=== PATIENT | female | born 1990 | race American Indian/Alaskan Native ===

== ENCOUNTER 2018-11-21 15:40 | Emergency (ER) | payer MEDICAID ==
[2018-11-21 15:59] VITALS: TEMP 98.3
--- NOTE | 2018-11-21 17:33 | C.PDOC ---
History Of Present Illness 28 year old female presents to the ED for evaluation of flu-like symptoms which began around 5 days ago. Patient complains of throat pain, cough, chills, rhinorrhea, and generalized body aches. She has been taking Day/NyQuil without significant relief. Patient presents to the ED today for evaluation of whether she has pneumonia or flu. She denies nausea, vomiting, diarrhea, urinary symptoms. Chief Complaint (Nursing): Flu-like Symptoms History Per: Patient History/Exam Limitations: no limitations Onset/Duration Of Symptoms: Days (5) Current Symptoms Are (Timing): Still Present Location Of Pain: Throat, Diffuse Myalgias Associated Symptoms: Chills, Sore Throat, Cough, Myalgias. denies: Nausea, Vomiting, Diarrhea Additional History Per: Patient Past Medical History Reviewed: Historical Data, Nursing Documentation, Vital Signs Vital Signs: Last Vital Signs Temp 98.3 F 11/21/18 15:56 Pulse 112 H 11/21/18 15:56 Resp 20 11/21/18 15:56 BP 122/87 11/21/18 15:56 Pulse Ox 98 11/21/18 15:56 - Medical History PMH: Asthma Surgical History: No Surg Hx Family History: States: Unknown Family Hx - Social History Hx Alcohol Use: Yes Hx Substance Use: No - Immunization History Hx Tetanus Toxoid Vaccination: No Hx Influenza Vaccination: No Hx Pneumococcal Vaccination: No Review Of Systems Constitutional: Positive for: Chills. Negative for: Weakness Eyes: Negative for: Redness, Other (scleral icterus ) ENT: Positive for: Nose Discharge, Throat Pain. Negative for: Mouth Swelling Cardiovascular: Negative for: Chest Pain Respiratory: Positive for: Cough. Negative for: Shortness of Breath Gastrointestinal: Negative for: Nausea, Vomiting, Diarrhea Genitourinary: Negative for: Dysuria, Hematuria Musculoskeletal: Positive for: Other (generalized body aches ). Negative for: Back Pain Skin: Negative for: Rash Neurological: Negative for: Weakness, Numbness, Dizziness Physical Exam - Physical Exam Appears: Well, Non-toxic, No Acute Distress Skin: Normal Color, Warm, No Rash Head: Atraumatic, Normacephalic Eye(s): bilateral: Normal Inspection (no scleral icterus ), PERRL, EOMI Ear(s): Bilateral: Normal (no drainage ) Nose: Other (enlarged turbinates bilaterally ) Oral Mucosa: Moist Throat: Normal (no swelling or injection ), No Exudate, Other (airway patent ) Chest: Symmetrical Respiratory: No Accessory Muscle Use, Other (normal inspiratory effort ) Extremity: Normal ROM Extremity: Bilateral: Atraumatic Neurological/Psych: Oriented x3, Normal Cranial Nerves (grossly intact ) ED Course And Treatment O2 Sat by Pulse Oximetry: 98 (on RA) Pulse Ox Interpretation: Normal Medical Decision Making Medical Decision Making: Progress: Flu swab ordered and reviewed. Patient is negative for flu A/B. Disposition Counseled Patient/Family Regarding: Studies Performed, Diagnosis, Need For Followup, Rx Given - Disposition Disposition: HOME/ ROUTINE Disposition Time: 17:31 Condition: STABLE Prescriptions: Albuterol HFA [Ventolin HFA 90 mcg/actuation (8 g)] 2 puff IH [id number] #1 inhaler Cetirizine HCl/Pseudoephedrine [Zyrtec-D Tablet] 1 each PO DAILY #14 tab.er.[id number] Instructions: Viral Upper Respiratory Infection, Adult (DC) Forms: General Discharge Instructions, [facility] (Slovenian), Work Excuse - Clinical Impression Clinical Impression: Influenza-like illness - PA / [employer] / Resident Statement MD/DO has reviewed & agrees with the documentation as recorded. - Scribe Statement The provider has reviewed the documentation as recorded by the Scribe (Radha Lemos) All medical record entries made by the Scribe were at my direction and personally dictated by me. I have reviewed the chart and agree that the record accurately reflects my personal performance of the history, physical exam, medical decision making, and the department course for this patient. I have also personally directed, reviewed, and agree with the discharge instructions and disposition.
[2018-11-21 17:41] VITALS: BP 129/76; PULSE 68; RESP 18
[2018-11-21 18:11] VITALS: O2SAT 98
== END 2018-11-21 17:41 | disposition home or self-care (01) ==
LOC: C.ER 15:40
DX: J11.1 Influenza due to unidentified influenza virus with other respiratory manifestations (principal)

== ENCOUNTER 2019-03-17 19:54 | Emergency (ER) | payer MEDICAID ==
[2019-03-17] MEDS ORDERED: Sodium Chloride 0.9% 1,000 ML IV ONE (20:25)
--- NOTE | 2019-03-17 20:30 | C.PDOC ---
History Of Present Illness 28 y/o female comes in to ED for reported abdominal pain, lower back pain, and hematuria since earlier today. Currently on depo. States that when she went to use the bathroom, she noticed blood clots but unclear where it was coming from. No fever or other complaints. Time Seen by Provider: 03/17/19 20:20 Chief Complaint (Nursing): Female Genitourinary History Per: Patient History/Exam Limitations: no limitations Onset/Duration Of Symptoms: Hrs Current Symptoms Are (Timing): Still Present Past Medical History Reviewed: Historical Data, Nursing Documentation, Vital Signs Vital Signs: Last Vital Signs Temp 98.8 F 03/17/19 20:10 Pulse 65 03/17/19 20:10 Resp 20 03/17/19 20:10 BP 121/85 03/17/19 20:10 Pulse Ox 98 03/17/19 20:10 Primary Care Provider: Alexia Toure - Medical History PMH: Asthma Family History: States: No Known Family Hx - Social History Hx Alcohol Use: Yes Hx Substance Use: No - Immunization History Hx Tetanus Toxoid Vaccination: No Hx Influenza Vaccination: No Hx Pneumococcal Vaccination: No Review Of Systems Except As Marked, All Systems Reviewed And Found Negative. Constitutional: Negative for: Fever, Chills Gastrointestinal: Positive for: Abdominal Pain Genitourinary: Positive for: Hematuria. Negative for: Dysuria, Vaginal Discharge, Vaginal Bleeding Musculoskeletal: Positive for: Back Pain (lower back) Physical Exam - Physical Exam Appears: Non-toxic, No Acute Distress Skin: Warm, Dry Head: Normacephalic Eye(s): bilateral: Normal Inspection Oral Mucosa: Moist Neck: Supple Cardiovascular: Rhythm Regular, No Murmur Respiratory: Normal Breath Sounds, No Rales, No Rhonchi, No Wheezing Gastrointestinal/Abdominal: Soft, Tenderness (minimal suprapubic tenderness), No Distention, No Guarding, No Rebound Back: No CVA Tenderness Extremity: Bilateral: Atraumatic, Normal Color And Temperature, Normal ROM Neurological/Psych: Oriented x3, Normal Speech ED Course And Treatment - Laboratory Results Result Diagrams: 03/17/19 20:48 03/17/19 20:48 O2 Sat by Pulse Oximetry: 98 (RA) Pulse Ox Interpretation: Normal Medical Decision Making Medical Decision Making: Plan: --Labs --IV fluids --UA ?hematurai vs vb. pt refuses rectal exam. in ner in nad. h/h stable urine no blood. pevlic no vb. adamant that no rectal bleeding. refuses further imaging as needs to tend to child states will return with worsening. Disposition - Disposition Referrals: Casey Garcia MD [Staff Provider] - [facility] [Outside] Disposition: HOME/ ROUTINE Disposition Time: 21:17 Condition: STABLE Additional Instructions: return to er with worsening symptoms or concerns. you are declining further imaging and work up return to er with worsening. Instructions: Blood in the Urine (Hematuria), Adult (DC), Heavy Periods (DC) Forms: [employer] (Sami) - Clinical Impression Clinical Impression: Vaginal bleeding, Hematuria - Scribe Statement The provider has reviewed the documentation as recorded by the Rohan Vogel Provider Attestation: All medical record entries made by the Yisselibjaja were at my direction and personally dictated by me. I have reviewed the chart and agree that the record accurately reflects my personal performance of the history, physical exam, medical decision making, and the department course for this patient. I have also personally directed, reviewed, and agree with the discharge instructions and disposition.
[2019-03-17 20:51] LABS: SQUAMOUS EPITHIAL < 1 /hpf (0-5); URINE BILIRUBIN NEGATIVE (NEGATIVE); URINE CLARITY Clear (Clear); URINE COLOR Yellow (YELLOW); URINE GLUCOSE (UA) NORMAL (Normal); URINE LEUKOCYTE ESTERASE NEG Leu/uL (Negative); URINE PROTEIN NEGATIVE (NEGATIVE); URINE UROBILINOGEN NORMAL mg/dL (0.2-1.0)
[2019-03-17 20:52] LABS: BASO # 0.1 K/uL (0.0-0.2); BASO % 1.2 % (0.0-2.0); EOS # 0.2 K/uL (0.0-0.7); EOS % 2.6 % (0.0-4.0); HEMOGLOBIN 15.4 g/dL (11.0-16.0); LYMPH # 2.2 K/uL (1.0-4.3); LYMPH % 31.8 % (20.0-40.0); MEAN CELL VOLUME 91.6 fL (81.0-99.0); MEAN CORPUSCULAR HEMOGLOBIN 31.2 pg (27.0-31.0); MEAN CORPUSCULAR HGB CONC 34.1 g/dL (33.0-37.0); MEAN PLATELET VOLUME 7.4 fL (7.2-11.7); MONO # 0.6 K/uL (0.0-0.8); MONO % 9.3 % (0.0-10.0); NEUT # 3.7 K/uL (1.8-7.0); NEUT % 55.1 % (50.0-75.0); NRBC % 0.1 % (0.0-2.0); RBC 4.93 Mil/uL (3.80-5.20); WHITE BLOOD COUNT 6.8 K/uL (4.8-10.8)
[2019-03-17 20:53] LABS: HCG,QUALITATIVE URINE NEGATIVE (NEGATIVE)
[2019-03-17 20:58] LABS: URINE BLOOD 1+ (NEGATIVE)
[2019-03-17 21:00] LABS: INR 1.1; PARTIAL THROMBOPLASTIN TIME 34.1 SECONDS (21-34); PROTHROMBIN TIME 11.6 SECONDS (9.7-12.2)
[2019-03-17 21:03] LABS: ALB/GLOB RATIO 1.3 (1.0-2.1); ALBUMIN 4.7 g/dL (3.5-5.0); ALT/SGPT 27 U/L (9-52); AST/SGOT 22 U/L (14-36); BLOOD UREA NITROGEN 9 mg/dL (7-17); CALCIUM 9.9 mg/dl (8.6-10.4); GFR NON-AFRICAN AMERICAN > 60; LIPASE 149 U/L (23-300)
[2019-03-17 21:50] VITALS: BP 113/84; PULSE 74; RESP 19; TEMP 97.8
[2019-03-17 23:19] VITALS: O2SAT 98
== END 2019-03-17 22:12 | disposition home or self-care (01) ==
LOC: C.ER 19:54
DX: R31.9 Hematuria, unspecified (principal); N93.9 Abnormal uterine and vaginal bleeding, unspecified